=== PATIENT | female | born 1965 | race Caucasian/White ===

== ENCOUNTER → 2019-12-12 11:43 | Outpatient (BNVA) | payer OTHER, SELFPAY | PROVIDERS: Visit Provider Anesthesiology | DX: Z76.89 Persons encountering health services in other specified circumstances (principal) ==

== ENCOUNTER → 2019-12-12 11:43 | Outpatient (BNVA) | payer OTHER, SELFPAY | PROVIDERS: PCP Internal Medicine; Visit Provider Anesthesiology | DX: Z13.89 Encounter for screening for other disorder (principal) ==

== ENCOUNTER 2020-03-05 14:41 | Outpatient (REF) | payer OTHER, SELFPAY ==
--- NOTE | 2020-03-05 16:06 | XR_ITS ---
EXAMINATION: XR CERVICAL SPINE CLINICAL INFORMATION: Cervicalgia COMPARISON: November 13, 2019 TECHNIQUE: 4 views of the cervical spine FINDINGS: No abnormal prevertebral soft tissue swelling is seen. No acute cervical spine fracture is noted. There is no change in appearance of the anterior plate and screw fixation C3-C7. Nerve stimulator leads again seen with tip at the level of the C3 superior endplate. Hardware intact. XR/XR cervical spine 2V IMPRESSION: Stable appearance of the cervical spine as described.
== END 2020-03-05 14:42 | disposition home or self-care (01) ==
LOC: HO.XRAY 14:41
PROVIDERS: PCP Internal Medicine; Visit Provider Anesthesiology
DX: M54.2 Cervicalgia (principal); Z96.89 Presence of other specified functional implants
CPT/HCPCS: 72040; 99212

== ENCOUNTER → 2020-03-24 14:48 | Outpatient (BNVA) | payer OTHER, SELFPAY | PROVIDERS: PCP Internal Medicine; Visit Provider Anesthesiology | DX: M54.2 Cervicalgia (principal); M96.1 Postlaminectomy syndrome, not elsewhere classified; M51.36 Other intervertebral disc degeneration, lumbar region; Z96.89 Presence of other specified functional implants | CPT/HCPCS: Q3014 ==